=== PATIENT | male | born 1990 | race Caucasian/White ===

== ENCOUNTER 2021-01-02 12:17 | Emergency (ER) | payer OTHER ==
[~2021-01-02] VITALS: Ht 175.3 cm; Wt 77.3 kg
[2021-01-02] MEDS ORDERED: PRAZ1CAP PO (12:37)
[2021-01-02] MEDS ORDERED: AMBI10TA PO (12:37)
[2021-01-02] MEDS ORDERED: ZOLO100T PO (12:37)
[2021-01-02] MEDS ORDERED: HYDR-3363 PO (12:37)
[2021-01-02] MEDS ORDERED: NS 1,000 ML IV ONE (14:45)
[2021-01-02 14:47] LABS: BASO % 0.4 % (0.0-1.0); EOS # 0.3 10^3/uL (0.0-0.5); EOS % 3.6 % (0.0-3.0); HEMATOCRIT 39.8 % (42.0-52.0); HEMOGLOBIN 13.6 g/dl (13.5-17.5); LYMPH # 1.6 10^3/uL (1.5-5.0); LYMPH % 18.8 % (24.0-44.0); MEAN CORPUSCULAR HEMOGLOBIN 30.5 pg (27.0-33.0); MEAN CORPUSCULAR HGB CONC 34.2 g/dl (32.0-36.5); MEAN CORPUSCULAR VOLUME 89.2 fl (80.0-96.0); MONO # 0.5 10^3/uL (0.0-0.8); MONO % 5.8 % (2.0-8.0); NEUTROPHILS % 70.7 % (36.0-66.0); PLATELET COUNT, AUTOMATED 233 10^3/uL (150-450); RED BLOOD COUNT 4.46 10^6/uL (4.30-6.10); WHITE BLOOD COUNT 8.5 10^3/uL (4.0-10.0)
[2021-01-02 15:33] VITALS: BP 120/58
--- NOTE | 2021-01-03 06:03 | ECGEPIP ---
[facility] - ED Test Date: 2021-01-02 Pat Name: BEA DECKER Department: Room: - Gender: Male Recreation Facility Manager: JARVIS : 1990 Requested By: JOSSELYN JONES PA-C. Order Number: [id number] Reading MD: Deion Marquis Measurements Intervals [place] Rate: 57 P: 4 NE: 186 QRS: 42 QRSD: 84 T: 37 QT: 436 QTc: 424 Interpretive Statements Sinus bradycardia NO PRIORS FOR COMPARISON Electronically Signed on 01-03-2021 6:03:40 EDT by Deion Marquis
== END 2021-01-02 15:58 | disposition home or self-care (01) ==
LOC: EDBD 12:17 → M ED 12:17
DX: I95.1 Orthostatic hypotension (principal); R00.1 Bradycardia, unspecified; F43.10 Post-traumatic stress disorder, unspecified; Z79.899 Other long term (current) drug therapy

== ENCOUNTER → 2021-06-10 | Outpatient (CLI) | payer OTHER ==
[~2021-06-10] MED LIST: AMBI10TA PO; HYDR-3363 PO; PRAZ1CAP PO; ZOLO100T PO
== END ==
LOC: M SLEEP 20:00
PROVIDERS: ATTEND Physician Assistant
DX: R40.0 Somnolence (principal)